=== PATIENT | female | born 1970 | race Caucasian/White ===

== ENCOUNTER 2018-12-26 17:33 | Emergency (ER) | payer MEDICAID ==
[~2018-12-26] VITALS: Ht 177.8 cm; Wt 88.9 kg
[2018-12-26 17:38] VITALS: BP 155/101
[2018-12-26 17:59] LABS: BASOPHILS # (AUTO) 0.05 x10^3/uL (0-0.1); BASOPHILS % (AUTO) 1 % (0-1); EOSINOPHILS # (AUTO) 0.27 x10^3/uL (0-0.4); EOSINOPHILS % (AUTO) 3 % (1-7); LYMPHOCYTES % (AUTO) 31 % (22-44); MD NO; MEAN CORPUSCULAR HEMOGLOBIN 31.9 pg (27.0-34.8); MEAN CORPUSCULAR HGB CONC 34.7 g/dL (32.4-35.8); MEAN CORPUSCULAR VOLUME 91.9 fL (80-100); MEAN PLATELET VOLUME 7.3 fL (7.4-10.4); MONOCYTES # (AUTO) 0.68 x10^3/uL (0.2-0.8); MONOCYTES % (AUTO) 7 % (2-9); NEUTROPHILS # (AUTO) 6.28 x10^3/uL (1.8-6.8); NEUTROPHILS % (AUTO) 60 % (42-75); PLATELET COUNT 390 x10^3/uL (130-400); RED BLOOD COUNT 5.14 x10^6/uL (3.82-5.3); RED CELL DISTRIBUTION WIDTH 14.1 % (9.6-15.2)
--- NOTE | 2018-12-26 17:59 | NUR ---
XRAY AT BEDSIDE.
[2018-12-26 18:00] LABS: HCT (SEDRATE) 47.6 % (34.6-47.8)
--- NOTE | 2018-12-26 18:01 | NUR ---
PATIENT PRESENTS TO ED TODAY FOR LT FOOT SWELLING X 1 MONTH, DOESN'T RECALL RECENT INJURY. LABS DRAWN. XRAY COMPLETED, AWAITING RESULTS. SIG OTHER AT BEDSIDE, CALL LIGHT WITHIN REACH. NO ADDITIONAL NEEDS AT THIS TIME.
[2018-12-26 18:12] LABS: ALBUMIN 3.4 g/dL (3.4-5.0); ANION GAP 7 mmol/L (5-15); CALCIUM 8.1 mg/dL (8.5-10.1); CHLORIDE 111 mmol/L (98-107); CREATININE 1.02 mg/dL (0.55-1.02)
--- NOTE | 2018-12-26 18:47 | NUR ---
NEW ORDERS, PATIENT IN US.
--- NOTE | 2018-12-26 20:26 | NUR ---
Awaiting EMT to splint foot, patient given discharge instructions and they have confirmed that they understand the instructions.
--- NOTE | 2018-12-26 20:58 | NUR ---
Patient ambulatory with steady gait with crutches to DC desk.
== END 2018-12-26 21:00 | disposition home or self-care (01) ==
LOC: ED 18:18
DX: S92.322A Displaced fracture of second metatarsal bone, left foot, initial encounter for closed fracture (principal); X58.XXXA Exposure to other specified factors, initial encounter; Y93.89 Activity, other specified; Y92.89 Other specified places as the place of occurrence of the external cause; Y99.8 Other external cause status
CPT/HCPCS: 29515; 36415; 80048; 82040; 85025; 85651; 86140; 99282; 99284